=== PATIENT | female | born 1950 | race Caucasian/White ===

== ENCOUNTER 2022-04-20 12:19 | Outpatient (CLI) | payer MEDICARE, SELFPAY ==
[2022-04-20 13:27] LABS: Absolute Lymphocyte Count 1.49 X10^3/uL (0.83-4.51); Absolute Neutrophil Count 6.9 X10^3/uL (2.0-7.7); Basophil# 0.07 X10^3/uL; Basophil% 0.8 % (0-1); Eosinophil# 0.02 X10^3/uL; Eosinophils% 0.2 % (0-5); Hematocrit 48.1 % (37-47); Lymphocyte # 1.49 X10^3/ul (0.83-4.51); Lymphocyte % 16.4 % (19-41); Mean Corp Hgb Conc 31.2 g/dL (32-36); Mean Corpuscular Volume 83.4 fL (81-99); Mean Platelet Vol. 9.5 fl (6.2-12.0); Monocyte# 0.55 X10^3/uL; NRBC Flagged by Analyzer 0 % (0-5); Neutrophil # 6.92 X10^3/uL (2.7-7.7); Neutrophil % 75.9 % (47-70); Platelet Count 431 K/mm3 (150-450); RBC Distribution Width CV 17.2 % (11.6-14.6); RBC Distribution Width SD 50.8 fl (35.1-43.9); Red Blood Count 5.77 M/mm3 (4.2-5.4); White Blood Count 9.1 K/mm3 (4.4-11.0)
[2022-04-20 13:41] LABS: International Normalized Ratio 1.1; Prothrombin Time (Protime)PT. 13.9 SECONDS (11.7-14.9)
[2022-04-20 13:50] LABS: BNP,B-Type NATRIURETIC PEPTIDE 35.4 pg/mL (0-100)
[2022-04-20 13:54] LABS: ALB/GLOB Ratio 0.9 RATIO (0.9-2.4); AST(SGOT) 26 U/L (15-37); Alanine Aminotransfer ALT/SGPT 29 U/L (13-56); Albumin, Serum 3.9 g/dL (3.2-5.0); Alkaline Phosphatase 116 U/L (45-117); Anion Gap 8 (5-15); BUN 12 mg/dL (7-18); BUN/Creat Ratio 9.8 RATIO (10-20); Calcium,Total 10.1 mg/dL (8.5-10.1); Chloride 99 mmol/L (98-107); Creatinine, Serum 1.22 mg/dL (0.55-1.02); EST Glomerular Filtration Rate 46 mL/min (>60); Est Glom Filt Rate - Afr Amer 56 mL/min (>60); Globulin 4.2 g/dL (2.2-4.2); Glucose 110 mg/dL (74-106); Potassium 3.1 mmol/L (3.5-5.1); Protein, Total 8.1 g/dL (6.4-8.2); Sodium Level 134 mmol/L (136-145)
== END 2022-04-20 23:59 | disposition home or self-care (01) ==
PROVIDERS: PCP Nurse Practitioner Family; Visit Provider Internal Medicine
DX: J44.9 Chronic obstructive pulmonary disease, unspecified (principal); I89.0 Lymphedema, not elsewhere classified; I35.0 Nonrheumatic aortic (valve) stenosis; R93.89 Abnormal findings on diagnostic imaging of other specified body structures
CPT/HCPCS: 36415; 80053; 82785; 83880; 85025; 85610; 86003; 86480

== ENCOUNTER → 2022-04-21 | Outpatient (CLI) | payer MEDICARE, OTHER, SELFPAY ==
--- NOTE | 2022-04-21 11:55 | RAD_ITS ---
STUDY: X-RAY CHEST REASON FOR EXAM: Female, 71 years old. COPD WITH HYPOXIA TECHNIQUE: XR Chest 2 Views COMPARISON: None FINDINGS: There is atherosclerotic calcification of the aortic arch with tortuosity. There are diffuse degenerative changes of the visualized thoracic spine. There is degenerative osteoarthritis of the bilateral shoulders. There is no demonstrated pleural abnormality. Normal size heart. Normal mediastinum and reymundo. Normal visualized pulmonary arteries. There is no demonstrated abnormality of the visualized soft tissue structures of the upper abdomen. RAD/Chest PA and Lateral IMPRESSION: There are no acute findings. Electronically Signed: Aldo Bolton MD at 18:05 EST ,
[2022-04-21 12:15] LABS: Allen Test Positive; Base Excess -4 mmol/L (-2 to +2); Bicarbonate 20.6 mmol/L (22-26); Blood Gas Specimen Type ART; FI02 21; PO2 59 mmHG (75-100); SITE L Radial; SO2 91 % (95-99); Total Carbon Dioxide 22 mmol/L; pH 7.43 (7.35-7.45)
== END | disposition home or self-care (01) ==
PROVIDERS: PCP Nurse Practitioner Family; Visit Provider Internal Medicine
DX: J44.9 Chronic obstructive pulmonary disease, unspecified (principal); J96.11 Chronic respiratory failure with hypoxia; Z99.81 Dependence on supplemental oxygen
CPT/HCPCS: 36600; 71046; 82803

== ENCOUNTER → 2022-05-03 | Outpatient (CLI) | payer MEDICARE, OTHER, SELFPAY ==
[2022-05-03 11:13] LABS: Anion Gap 8 (5-15); BUN 18 mg/dL (7-18); BUN/Creat Ratio 15.3 RATIO (10-20); Calcium,Total 9.5 mg/dL (8.5-10.1); Chloride 102 mmol/L (98-107); Creatinine, Serum 1.18 mg/dL (0.55-1.02); EST Glomerular Filtration Rate 48 mL/min (>60); Est Glom Filt Rate - Afr Amer 58 mL/min (>60); Glucose 113 mg/dL (74-106); Potassium 4.1 mmol/L (3.5-5.1); Sodium Level 136 mmol/L (136-145)
--- NOTE | 2022-05-03 14:51 | PFTCOMP ---
COMPLETE PULMONARY FUNCTION TEST INTERPRETATION Brief HPI: Patient is a 71-year-old female, currently under the care of Dr. Christiansen, who presents to [facility] for complete pulmonary function tests secondary to diagnosis of COPD. Respiratory therapist reports good effort and reproducible results. Interpretation: Forced expiration spirometry shows a moderately severe large airways obstructive ventilatory defect with an FEV1 of 55% predicted. There is no significant bronchodilator response by strict ATS criteria. Spirograms are of good quality and plateau slowly, indicating slowly emptying areas of the lungs. The respiratory flow volume loop shows decreased expiratory flow rates at all lung volumes consistent with airway obstruction. Lung volumes by body plethysmography show a normal total lung capacity at 4.02 L, 87% predicted. All other lung volumes are within normal limits. Diffusion capacity by carbon monoxide is decreased at 33% predicted. The airway resistance is slightly elevated. No previous pulmonary function tests were available for review. Impression: Irreversible moderately severe large airways obstructive ventilatory defect with a disproportionate reduction in diffusing capacity
[2022-05-06 12:08] LABS: QNTFERON TB Mitogen Value > 10.00 IU/mL (.); QNTFERON TB Nil Value 0.03 IU/mL (.); QNTFERON TB1+ Ag Value 0.02 IU/mL (.); QNTFERON TB2+ Ag Value 0.02 IU/mL (.)
[2022-05-06 13:56] LABS: QNTIFERON TB Positive Criteria Negative (Negative)
== END | disposition home or self-care (01) ==
PROVIDERS: PCP Nurse Practitioner Family; Referring Provider Internal Medicine; Visit Provider Internal Medicine
DX: R73.03 Prediabetes (principal); J44.9 Chronic obstructive pulmonary disease, unspecified; E87.6 Hypokalemia
CPT/HCPCS: 36415; 80048; 86480; 94060; 94726; 94729

== ENCOUNTER → 2022-06-08 | Outpatient (CLI) | payer MEDICARE, OTHER, SELFPAY ==
--- NOTE | 2022-06-08 16:58 | CT_ITS ---
STUDY: LOW DOSE CT LUNG CANCER SCREENING REASON FOR EXAM: Female, 71 years old. Prior smoker quit 5 years ago. 48 pack-year history. RADIATION DOSAGE (If Supplied By Facility): CTDIvol = ( 4.02 ) mGy, DLP = ( 123.35 ) mGycm TECHNIQUE: No contrast was administered. Low dose technique was utilized (average mAS-38 and kVp 120). 1.25 mm axial source images with a slice interval of 1.25-mm were reconstructed in lung windows. 2.5 mm axial source images with a slice interval of 2.5-mm were reconstructed in lung windows. 5.0 mm axial source images with a slice interval of 5.0-mm were reconstructed in soft tissue windows. COMPARISON: Chest, January 20, 2022. NODULES: There are multiple calcified granulomata throughout both lungs. These measure less than 5 mm in diameter. There is no evidence of soft tissue mass. Total lung nodules (excluding granulomas): 0 Emphysema: Diffuse emphysematous changes. Endobronchial lesion: No Aorta: Atherosclerotic changes of the thoracic aorta without aneurysm. CORONARY ARTERIES: Coronary artery calcification is seen. Heart: Normal Pulmonary artery: Normal Mediastinal nodes: None Other chest and abdominal findings: Degenerative changes of the thoracic spine. Hepatomegaly. CT/Low Dose CT Lung Screening IMPRESSION: Lung-RADS category 1 - Continue annual screening with LDCT in 12 months. IMPORTANT NOTES FOR USE: ACR Lung-RADS Version 1.1 Assessment Categories Release Date: 2018 Category: Coded 0-4 bases on nodule(s) with highest degree of suspicion. Negative screen is defined as categories 1 and 2; a positive screen is defined as categories 3 and 4. Category 3 and 4A nodules that are unchanged on interval CT should be coded as category 2, and individuals returned to screening in 12 months. Category 4X: Category 3 or 4 nodules with additional imaging findings that increase the suspicion of lung cancer, such as spiculation, GGN that doubles in size in 1 year, enlarged lymph notes, etc. Category Modifiers: S (significant finding unrelated to lung cancer) Electronically Signed: Greg Fink DO at 18:19 EST Reading Location ID and State: [facility] / [place] Tel [phone], Service support ,
== END | disposition home or self-care (01) ==
LOC: CT 16:55
PROVIDERS: PCP Nurse Practitioner Family; Visit Provider Internal Medicine
DX: Z87.891 Personal history of nicotine dependence (principal)
CPT/HCPCS: 71271

== ENCOUNTER → 2022-07-25 | Outpatient (CLI) | payer MEDICARE, OTHER, SELFPAY | END | disposition home or self-care (01) | LOC: SL 21:11 | PROVIDERS: PCP Nurse Practitioner Family; Visit Provider Internal Medicine | DX: G47.33 Obstructive sleep apnea (adult) (pediatric) (principal); Z99.89 Dependence on other enabling machines and devices | CPT/HCPCS: 95811 ==

== ENCOUNTER → 2022-09-26 | Outpatient (CLI) | payer MEDICARE, OTHER, SELFPAY ==
[2022-09-26 15:44] LABS: Thyroid Stim Hormone (TSH) 3.96 uIU/mL (0.358-3.74)
== END | disposition home or self-care (01) ==
LOC: LAB 14:05
PROVIDERS: PCP Nurse Practitioner Family; Referring Provider Internal Medicine; Visit Provider Internal Medicine
DX: I50.9 Heart failure, unspecified (principal)
CPT/HCPCS: 36415; 84443

== ENCOUNTER → 2022-10-27 | Outpatient (CLI) | payer MEDICARE, OTHER, SELFPAY ==
--- NOTE | 2022-10-31 07:09 | PFT ---
INTRODUCTION: The patient is a 72-year-old female that presents for pulmonary function studies secondary to a diagnosis of COPD. Respiratory therapy reported good patient effort. Bronchodilators were used during testing. INTERPRETATION: Forced expiration spirometry demonstrates the presence of a mild large airways obstructive ventilatory defect. There was no significant response to aerosolized bronchodilators. Spirograms are of fair quality and plateau gradually. Body plethysmography was performed and revealed an elevated RV to 134% of predicted, indicative of underlying air trapping. Diffusing capacity by single breath CO is reduced at 46% of predicted. IMPRESSION: Irreversible mild large airways obstructive ventilatory defect with associated air trapping and reduction in diffusing capacity.
== END | disposition home or self-care (01) ==
LOC: PSN 12:13
PROVIDERS: PCP Nurse Practitioner Family; Referring Provider Internal Medicine; Visit Provider Internal Medicine
DX: J44.9 Chronic obstructive pulmonary disease, unspecified (principal)
CPT/HCPCS: 94060; 94726; 94729

== ENCOUNTER → 2024-04-04 | Outpatient (CLI) | payer MEDICARE, OTHER, SELFPAY | END | disposition home or self-care (01) | PROVIDERS: PCP Nurse Practitioner Family; Referring Provider Nurse Practitioner Family; Visit Provider Nurse Practitioner Family | DX: L98.8 Other specified disorders of the skin and subcutaneous tissue (principal); Z08 Encounter for follow-up examination after completed treatment for malignant neoplasm; Z85.828 Personal history of other malignant neoplasm of skin; D48.5 Neoplasm of uncertain behavior of skin; L57.0 Actinic keratosis; L21.8 Other seborrheic dermatitis; L40.8 Other psoriasis; I89.0 Lymphedema, not elsewhere classified; D69.2 Other nonthrombocytopenic purpura; L85.3 Xerosis cutis; D22.5 Melanocytic nevi of trunk; L82.1 Other seborrheic keratosis; Z71.89 Other specified counseling | CPT/HCPCS: 87070; 87077; 87186; 87205 ==

== ENCOUNTER 2024-06-20 17:14 | Emergency (ER) | payer MEDICARE, OTHER, SELFPAY ==
[2024-06-20] VITALS (19 sets, daily range): BP systolic 138–161; BP diastolic 85–146; PULSE 95–102; RESP 18–45; TEMP 36.2–37; O2SAT 89–100; BMI 33.6
--- NOTE | 2024-06-20 17:17 | EKG12_ITS ---
Test Reason : CP Blood Pressure : */* mmHG Vent. Rate : 95 BPM Atrial Rate : 95 BPM P-R Int : 162 ms QRS Dur : 72 ms QT Int : 346 ms P-R-T Axes : 95 -14 49 degrees QTcB Int : 434 ms Normal sinus rhythm Low voltage QRS Septal infarct , age undetermined Abnormal ECG Confirmed by [place] PAYNE, BOOGIE ([id number]), fashion editor SIMI WELLS ([id number]) on 06/22/2024 8:02:19 AM Referred By: Gary Manzano Confirmed By: BOOGIE OSBORNE MD
--- NOTE | 2024-06-20 18:18 | EDS_ITS ---
HPI History of Present Illness Chief Complaint: Chest Pain Narrative Narrative: Chief complaint and HPI: Chest pain. 73-year-old female with past medical history of COPD on 4 L nasal cannula baseline, HLD, HTN who presents for evaluation of chest pain. Patient states that she was recently hospitalized secondary to pneumonia. She states she was discharged home on steroids and antibiotics which she completed. She states that is only been a couple days since being off the steroids. She states since then she has been doing well until today. She states the chest pain started about half an hour prior to arrival while eating dinner. She describes it as sharp. Worse with deep insp iration. She does endorse a lot of coughing. She denies any fever, chills, abdominal pain, nausea, vomiting, diaphoresis. Pain does not radiate into the jaw or down the arm. At baseline she has bilateral peripheral edema which she states is improved from her baseline. Patient states that she had a cardiac cath within a year or 2 ago that was unremarkable. On chart review, I do not have any echocardiogram or cardiac cath to visualize. Review of systems: See HPI Medications: As listed on the chart Allergies: As listed on the chart PFSH: Per chart Vital signs: As listed on the chart. Reviewed. Physical exam: Gen: A&O x3, NAD Head: Normocephalic, atraumatic Eyes: No sclera icterus, conjunctiva clear ENT: Moist mucous membranes Neck: Trachea midline, No JVD CV: RRR, no murmurs, +2 peripheral pitting edema Resp: Lungs diminished in the bilateral bases, intermittent expiratory wheezing, on baseline 4 L nasal cannula, patient is tender to palpation of the left rib cage which does recreate her pain GI: Abd soft, non-distended, non-tender, no r/r/g Musc: Full ROM, no deformity Skin: Warm, dry Neuro: Alert, oriented, grossly intact, sensation intact Psych: Cooperative, appropriate mood and affect [facility] Medical History Skin cancer Aspiration pneumonia Abnormal chest CT Chronic obstructive pulmonary disease Home Medications ?Medication ?Instructions ?Recorded ?Last Taken ?Type acetaminophen 325 mg capsule 325 mg PO ONCE PRN fever or pain 04/20/22 Unknown History cholecalciferol (vitamin D3) 25 25 mcg PO DAILY Unknown History mcg (1,000 unit) capsule cyanocobalamin (vitamin B-12) 1,000 mcg PO DAILY 04/20 Unknown History 1,000 mcg capsule fluoxetine 60 mg tablet 60 mg PO DAILY 04/20/22 Unkn own History hydroxyzine HCl 10 mg tablet 10 mg PO TID-QID PRN itch ing 04/20/22 Unknown History ipratropium bromide 0.02 % 2.5 ml inhalation Q6H PRN 1 06/21/21 Unknown Rx solution for inhalation shortness of breath or wheez ing #150 mL ipratropium bromide 21 mcg (0.03 2 spray intranasal BI D-TID PRN 04/20/22 Unknown Rx %) nasal spray allergy symptoms #30 mL nortriptyline 50 mg capsule 50 mg PO QHS 04/20/22 Unkn own History potassium chloride 10 mEq 40 meq (4 x 10 mEq) PO DAILY 04/20/22 Unknown Rx tablet,extended release Hypokalemia #30 tabs propylene glycol 0.6 % eye drops 1 drp ophthalmic (eye ) TID PRN dry 04/20/22 Unknown History (Systane Balance) eye(s) furosemide 20 mg tablet 20 mg PO DAILY 06/21/22 Unkn own History empagliflozin 10 mg tablet 10 mg PO DAILY 09/22/22 Unk nown History (Jardiance) albuterol sulfate 90 mcg/actuation 2 puff inhalation Q 6H PRN 09/01/23 Unknown Rx aerosol inhaler shortness of breath or wheez ing #8.5 grams budesonide 160 mcg-glycopyr 9 2 inh inhalation BID #3 ea 01/04/24 Unknown Rx mcg-formot 4.8 mcg/actuation HFA inhaler (Breztri Aerosphere) montelukast 10 mg tablet 10 mg PO DAILY #90 tabs 12/14 07/08 Unknown Rx (Singulair) aspirin 81 mg tablet,delayed 81 mg PO QDAY 05/06/24 Un known History release atorvastatin 20 mg tablet 20 mg PO QDAY 05/06/24 Unkno wn History carvedilol 12.5 mg tablet 12.5 mg PO BID 05/06/24 Unkn own History lidocaine 4 % topical patch 1 patch topical Q24H PRN p ain 05/06/24 Unknown History (Lidocaine Pain Relief) sacubitril 24 mg-valsartan 26 mg 1 tab PO BID 05/06/24 Unknown History tablet (Entresto) benzonatate 100 mg capsule 100 mg PO BID 06/20/24 Unkn own History famotidine 20 mg tablet 60 mg PO DAILY 06/20/24 Unkn own History guaifenesin 600 mg tablet, 600 mg PO Q12.TCU 06/20/24 Unknown History extended release 12 hr (Mucus Relief ER) omeprazole 20 mg capsule,delayed 20 mg PO BID 06/20/24 Unknown History release potassium chloride 20 mEq 40 meq PO DAILY 06/20/24 Unk nown History tablet,extended release(part/cryst) sucralfate 1 gram tablet 1 g PO BID PRN stomach upset 06/20/24 Unknown History Allergy/AdvReac Type Severity Reaction Status Date / Time codeine Allergy Intermediate Upset Verified 06/20/24 17:15 Stomach Penicillins Allergy Intermediate Rash Verified 06/20/24 17:15 Sulfa (Sulfonamide AdvReac Severe Anaphylaxis Verified 06/20/24 17:15 Antibiotics) Surgical History (Reviewed 05/06/24 @ 13:48 by Kati Quevedo COLLABORATING SUPERVISING PHYSICIAN, COLLABORATING SUPERVISING PHYSICIAN-C) H/O right heart catheterization Social History (Reviewed 05/06/24 @ 13:48 by Kati Quevedo COLLABORATING SUPERVISING PHYSICIAN, COLLABORATING SUPERVISING PHYSICIAN-C) Smoking Status: Former smoker how long ago did patient quit smokin second hand exposure: Yes EXAM Physical Exam Const Vital Signs: 06/20/24 17:15 06/20/24 18:02 06/20/24 18:03 Temperature 97.2 F L Temperature Source Temporal Pulse Rate 98 Respiratory Rate 26 H Respiratory Effort Short of Breath Respiratory Pattern Tachypnea Blood Pressure 142/106 H Blood Pressure Mean 118 Pulse Ox 92 97 Oxygen Delivery Method Nasal Cannula Nasal Cannula Oxygen Flow Rate (L/min) 4 5 06/20/24 18:06 06/20/24 18:15 06/20/24 18:30 Temperature Temperature Source Pulse Rate 95 97 99 Respiratory Rate 21 H 35 H 25 H Respiratory Effort Respiratory Pattern Blood Pressure 161/85 H Blood Pressure Mean 109 Pulse Ox 97 Oxygen Delivery Method Nasal Cannula Oxygen Flow Rate (L/min) 4 06/20/24 18:30 06/20/24 18:49 06/20/24 18:54 Temperature Temperature Source Pulse Rate 101 H 99 Respiratory Rate 30 H 26 H Respiratory Effort Respiratory Pattern Tachypnea Blood Pressure 161/85 H Blood Pressure Mean 109 Pulse Ox 93 Oxygen Delivery Method Oxygen Flow Rate (L/min) 06/20/24 18:56 06/20/24 19:00 06/20/24 19:00 Temperature Temperature Source Pulse Rate 95 102 H Respiratory Rate 28 H 21 H Respiratory Effort Respiratory Pattern Blood Pressure 148/109 H 159/146 H Blood Pressure Mean 122 152 Pulse Ox 96 94 98 Oxygen Delivery Method Nasal Cannula Nasal Cannula Nasal Cannula Oxygen Flow Rate (L/min) 4.5 5 4 06/20/24 19:15 06/20/24 19:15 06/20/24 19:30 Temperature Temperature Source Pulse Rate 101 H 101 H 102 H Respiratory Rate 27 H 27 H 45 H Respiratory Effort Respiratory Pattern Blood Pressure 148/109 H 143/114 H Blood Pressure Mean 120 124 Pulse Ox 89 89 99 Oxygen Delivery Method Oxygen Flow Rate (L/min) 06/20/24 19:34 06/20/24 19:45 06/20/24 20:00 Temperature Temperature Source Pulse Rate 95 102 H Respiratory Rate 27 H 18 Respiratory Effort Short of Breath Respiratory Pattern Tachypnea Blood Pressure 148/92 H Blood Pressure Mean 111 Pulse Ox 100 99 Oxygen Delivery Method Nasal Cannula Nasal Cannula Oxygen Flow Rate (L/min) 5 5 06/20/24 20:15 06/20/24 20:30 06/20/24 20:36 Temperature 98.6 F Temperature Source Oral Pulse Rate 97 102 H Respiratory Rate 21 H 25 H Respiratory Effort Respiratory Pattern Blood Pressure 138/120 H Blood Pressure Mean 128 Pulse Ox 100 100 Oxygen Delivery Method Nasal Cannula Oxygen Flow Rate (L/min) 5 06/20/24 20:45 06/20/24 21:00 06/20/24 21:45 Temperature Temperature Source Pulse Rate 97 98 98 Respiratory Rate 24 H 18 21 H Respiratory Effort Respiratory Pattern Blood Pressure 158/86 H Blood Pressure Mean 110 Pulse Ox 95 95 96 Oxygen Delivery Method Nasal Cannula Oxygen Flow Rate (L/min) 4 06/20/24 21:45 Temperature 98.2 F Temperature Source Pulse Rate 98 Respiratory Rate 21 H Respiratory Effort Respiratory Pattern Blood Pressure 158/86 H Blood Pressure Mean 110 Pulse Ox 96 Oxygen Delivery Method Oxygen Flow Rate (L/min) MDM MDM MDM Narrative Medical decision making narrative: 73-year-old female with past medical history of COPD on 4 L nasal cannula baseline, HLD, HTN who presents for evaluation of chest pain. Differential diagnosis includes but is not limited to musculoskeletal pain, costochondritis, COPD exacerbation, worsening pneumonia. Given that her pain is atypical suspect less likely ACS. Aspirin and breathing treatments ordered. Cardiac and respiratory workup ordered. EKG reviewed see below. CBC with leukocytosis of 17.2, I suspect that this is likely reactive to her recent steroid use. She states her symptoms of pneumonia have improved. Patient has anemia with a he moglobin of 11.9. My previous labs are from 2021. I suspect that this is chronic. Patient denying any bleeding. BMP without significant electrolyte abnormality or JUANITA. BNP mildly elevated at 217. Patient is not significantly overloaded on exam or chest x-ray. Troponin unremarkable x 2. On reevaluation, patient states her pain has resolved. Her heart score is a is a 4 given risk factors however low suspicion for ACS given that her pain was atypical and has completely resolved. Patient was also tender to palpation on physical exam that recreated her pain. Patient was updated on all the results. Patient is in agreement to discharging home. Follow-up with primary care physician. Return back to the ED if symptoms change or worsen. She confirmed understanding of the plan. EKG: Interpreted by me/EM physician: EKG shows normal sinus rhythm without any acute ischemic changes heart rate 95. Diagnostic: Interpreted by me/EM physician: Trace bilateral effusions. No large pneumonia. No pneumothorax. Impression: 1. Atypical chest pain 2. Anemia Lab Data Labs: Laboratory Results - last 24 hr 06/20/24 06/20/24 18:25 20:37 WBC 17.2 H RBC 4.67 Hgb 11.9 L Hct 40.3 MCV 86.3 MCH 25.5 L MCHC 29.5 L RDW Std Deviation 65.5 H RDW Coeff of Rosio 20.9 H Plt Count 403 MPV 9.6 Immature Gran % (Auto) COLLABORATING SUPERVISING PHYSICIAN Neut % (Auto) COLLABORATING SUPERVISING PHYSICIAN Lymph % (Auto) COLLABORATING SUPERVISING PHYSICIAN [place] % (Auto) COLLABORATING SUPERVISING PHYSICIAN Eos % (Auto) COLLABORATING SUPERVISING PHYSICIAN Baso % (Auto) COLLABORATING SUPERVISING PHYSICIAN Absolute Neuts (auto) 15.3 H Absolute Lymphs (auto) 1.20 Total Counted 100 Neutrophils % (Manual) 89 H Lymphocytes % (Manual) 7 L Eosinophils % (Manual) 3 Myelocytes % 1 H Nucleated RBC % 0 Diff Path Review May foll Atypical Lymphocytes 1+ Platelet Estimate SLT INC Plt Morphology Comment CLUMPED Polychromasia 1+ Anisocytosis 1+ Ovalocytes 1+ Sodium 137 Potassium 3.8 Chloride 107 Carbon Dioxide 26.0 Anion Gap 4 L BUN 11 Creatinine 0.87 Estim Creat Clear Calc 59.90 Est GFR (MDRD) Af Amer 82 Est GFR (MDRD) Non-Af 68 BUN/Creatinine Ratio 12.6 Glucose 89 Calcium 9.0 Troponin I High Sens 4 4 B-Natriuretic Peptide 217.1 H Radiography Diagnostic Testing: Clinical Impression(s) from Imaging Studies Chest X-Ray 06/20/24 18:40 IMPRESSION: Probable edema. Correlate with fever status to exclude infection. Trace bilateral pleural effusions. Reading Location: [id number] Discharge Plan Triage Chief Complaint: Chest Pain ED Provider: Gary Manzano Dx/Rx/DC Orders Clinical Impression: Chest pain of uncertain etiology Instructions: ED Chest Pain, Uncertain Cause Prescriptions: No Action cholecalciferol (vitamin D3) 25 mcg (1,000 unit) capsule 25 mcg PO DAILY cyanocobalamin (vitamin B-12) 1,000 mcg capsule 1,000 mcg PO DAILY fluoxetine 60 mg tablet 60 mg PO DAILY hydroxyzine HCl 10 mg tablet 10 mg PO TID-QID PRN (Reason: itching) nortriptyline 50 mg capsule 50 mg PO QHS Systane Balance 0.6 % drops 1 drp ophthalmic (eye) TID PRN (Reason: dry eye(s)) acetaminophen 325 mg capsule 325 mg PO ONCE PRN (Reason: fever or pain) ipratropium bromide 21 mcg (0.03 %) spray,non-aerosol 2 spray intranasal BID-TID PRN (Reason: allergy symptoms) Qty: 30 3RF Rx Instructions: administer into each nostril ipratropium bromide 0.02 % solution 2.5 ml inhalation Q6H PRN (Reason: shortness of breath or wheezing) Qty: 150 3RF Rx Instructions: uSE THIS INSTEAD OF ALBUTEROL IN YOUR NEBULIZER furosemide 20 mg tablet 20 mg PO DAILY Jardiance 10 mg tablet 10 mg PO DAILY albuterol sulfate 90 mcg/actuation HFA aerosol inhaler 2 puff inhalation Q6H PRN (Reason: shortness of breath or wheezing) Qty: 8.5 6RF Breztri Aerosphere 160-9-4.8 mcg/actuation HFA aerosol inhaler 2 inh inhalation BID Qty: 3 3RF montelukast [Singulair] 10 mg tablet 10 mg PO DAILY Qty: 90 3RF atorvastatin 20 mg tablet 20 mg PO QDAY carvedilol 12.5 mg tablet 12.5 mg PO BID lidocaine [Lidocaine Pain Relief] 4 % adhesive patch,medicated 1 patch topical Q24H PRN (Reason: pain) aspirin 81 mg tablet,delayed release (DR/EC) 81 mg PO QDAY sacubitril-valsartan [Entresto] 24-26 mg tablet 1 tab PO BID sucralfate 1 gram tablet 1 g PO BID PRN (Reason: stomach upset) potassium chloride 20 mEq tablet,ER particles/crystals 40 meq PO DAILY famotidine 20 mg tablet 60 mg PO DAILY benzonatate 100 mg capsule 100 mg PO BID omeprazole 20 mg capsule,delayed release(DR/EC) 20 mg PO BID guaifenesin [Mucus Relief ER] 600 mg tablet extended release 12hr 600 mg PO Q12.TCU potassium chloride 10 mEq tablet extended release 40 meq PO DAILY Qty: 30 0RF Rx Instructions: Recheck BMP in 1 week after restarting Lasix and increasing potassium from 10 mill equivalents daily to 40 milliequivalents daily. Discussed with patient by phone 04/20. Primary Care Provider: Elva Hagan NP Referrals: Elva Hagan NP, COLLABORATING SUPERVISING PHYSICIAN-C [Primary Care Provider] - 3-5 Days Activity Restrictions/Additional Instructions: Follow-up with your primary care physician. Return back to the ED if symptoms change or worsen Print Language: Portuguese Disposition Disposition: Home, Self Care Discharge Date/Time: 06/20/24 22:11
[2024-06-20] MEDS: Aspirin 81 MG TAB.CHEW 324 MG PO (18:27)
[2024-06-20 18:40] LABS: Eosinophil# 0.46 X10^3/uL; Hematocrit 40.3 % (37-47); Hemoglobin 11.9 g/dL (12.0-15.0); Mean Corp Hgb Conc 29.5 g/dL (32-36); Mean Corpuscular Hgb 25.5 pg (27.0-32.0); Mean Corpuscular Volume 86.3 fL (81-99); Mean Platelet Vol. 9.6 fl (6.2-12.0); Monocyte# 0.91 X10^3/uL; NRBC Flagged by Analyzer 0 % (0-5); Neutrophil # 14.35 X10^3/uL (2.7-7.7); POSITIVE MORPHOLOGY YES; Platelet Count 403 K/mm3 (150-450); RBC Distribution Width CV 20.9 % (11.6-14.6); RBC Distribution Width SD 65.5 fl (35.1-43.9); Red Blood Count 4.67 M/mm3 (4.2-5.4); White Blood Count 17.2 K/mm3 (4.4-11.0)
--- NOTE | 2024-06-20 18:40 | RAD_ITS ---
PROCEDURE: CHEST PA AND LATERAL REASON FOR EXAM: CHF. TECHNIQUE: Frontal and lateral views of the chest. COMPARISON: 04/21/2022. FINDINGS: The heart size is enlarged. The mediastinal contour is unremarkable. Vascular indistinctness lung bases suggestive of edema. Trace bilateral pleural effusions. The bones are unremarkable. RAD/Chest PA and Lateral IMPRESSION: Probable edema. Correlate with fever status to exclude infection. Trace bilateral pleural effusions. Reading Location: [id number]
[2024-06-20 18:50] LABS: Differential Indicated SCAN CRITERIA MET
[2024-06-20] MEDS: Ipratropium/Albuterol Sulfate 3 ML AMPUL.NEB 9 ML INHALATION (18:52)
[2024-06-20 19:01] LABS: Anion Gap 4 (5-15); BUN 11 mg/dL (7-18); BUN/Creat Ratio 12.6 RATIO (10-20); Chloride 107 mmol/L (98-107); Creatinine, Serum 0.87 mg/dL (0.55-1.02); EST Glomerular Filtration Rate 68 mL/min (>60); Est Glom Filt Rate - Afr Amer 82 mL/min (>60); Glucose 89 mg/dL (74-106); Potassium 3.8 mmol/L (3.5-5.1); Sodium Level 137 mmol/L (136-145); Troponin-I HS (w/2H Reflex) 4 pg/mL (3.0-54.0)
[2024-06-20 20:31] LABS: Anisocytosis 1+; Ovalocyte 1+; Reflex Troponin-HS? (from REC) Y
[2024-06-20 20:36] LABS: BNP,B-Type NATRIURETIC PEPTIDE 217.1 pg/mL (0-100)
[2024-06-20 20:41] LABS: Neutrophil-Segmented 89 % (47-70); Total Cells Counted 100 (MANUAL DIFF)
[2024-06-20 20:42] LABS: Eosinophil 3 % (0-5); Lymphocyte 7 % (19-41); Myelocyte 1 % (0-0); Platelet Morphology CLUMPED
[2024-06-20 20:43] LABS: Atypical Lymphocyte 1+ %; Platelet Estimate SLT INC (ADEQ)
[2024-06-20 20:44] LABS: Polychromasia 1+
[2024-06-20 20:45] LABS: Scan Smear per Review Criteria MANUAL DIFF
[2024-06-20 20:46] LABS: Absolute Neutrophil Count 15.3 X10^3/uL (2.0-7.7)
[2024-06-20 21:09] LABS: Troponin-I HS 4 pg/mL (3.0-54.0)
[2024-06-20] MEDS: hydrALAZINE 20 MG/ML Vial 10 MG IV (21:42)
[2024-06-21 13:48] LABS: Pathologist Review Reviewed
== END 2024-06-20 22:11 | disposition home or self-care (01) ==
PROVIDERS: Emergency Provider Surgery; PCP Nurse Practitioner Family; Referring Provider Surgery; Visit Provider Surgery
DX: R07.9 Chest pain, unspecified (principal); J44.9 Chronic obstructive pulmonary disease, unspecified; E78.5 Hyperlipidemia, unspecified; I10 Essential (primary) hypertension; Z87.891 Personal history of nicotine dependence; Z79.82 Long term (current) use of aspirin; Z79.51 Long term (current) use of inhaled steroids; Z79.899 Other long term (current) drug therapy
CPT/HCPCS: 71046; 80048; 83880; 84484; 85025; 87631; 93005; 94640; 96374; 99285; A4216